=== PATIENT | female | born 1995 | race Two or more races ===

== ENCOUNTER 2020-09-28 13:47 | Emergency (ER) | payer SELFPAY ==
[~2020-09-28] VITALS: Ht 167.6 cm; Wt 73.0 kg
[2020-09-28 14:08] VITALS: BP 128/83
[2020-09-28] MEDS ORDERED: ACETAMINOPHEN 325MG TABLET PO ONE (14:30)
[2020-09-28] MEDS ORDERED: IBUP-2028 PO (15:31)
== END 2020-09-28 15:52 | disposition home or self-care (01) ==
LOC: ER 13:47
DX: M25.561 Pain in right knee (principal); V00.131A Fall from skateboard, initial encounter; Y93.89 Activity, other specified; Y92.89 Other specified places as the place of occurrence of the external cause; Y99.8 Other external cause status
CPT/HCPCS: 73560; 73590; 99284